=== PATIENT | female | born 1945 | race Caucasian/White ===

== ENCOUNTER 2019-05-22 14:50 | Inpatient (IN) | payer MEDICAID ==
[~2019-05-22] VITALS: Ht 147.3 cm; Wt 57.4 kg
--- NOTE | 2019-05-22 16:41 | NUR ---
PT WALKED TO ROOM OB IN STABLE CONDITION WITH CO BILATERAL LOWER EXTREMITIES SWELLING. PT MISSED HD TODAY SINCE NO INSURANCE.
[2019-05-22 17:15] LABS: BASOPHIL % 0.4 % (0-2); PLATELET COUNT 238 x10^3mcL (130-400)
[2019-05-22 17:28] LABS: ALKALINE PHOSPHATASE 160 U/L (46-116); ALT/SGPT 68 U/L (14-59); AST/SGOT 47 U/L (15-37); BILIRUBIN TOTAL 0.3 mg/dL (0.20-1.00); CALCIUM 8.7 mg/dL (8.5-10.1); CARBON DIOXIDE 18.8 mmol/L (21-32); CHLORIDE SERUM 103 mmol/L (98-107); GLUCOSE SERUM 111 mg/dL (74-106); POTASSIUM SERUM 4.7 mmol/L (3.5-5.1); SODIUM SERUM 136 mmol/L (136-145); TOTAL PROTEIN, SERUM 7.1 g/dL (6.4-8.2)
[2019-05-22 17:42] LABS: ALBUMIN 3.3 g/dL (3.4-5.0)
[2019-05-22 17:45] LABS: CREATININE SERUM 7.6 mg/dL (0.6-1.0)
--- NOTE | 2019-05-22 17:50 | NUR ---
LAB CALLED CRITICAL REPORT CREATININE 7.6. WAS NOTIFIED AT SAME TIME TO RECEIVED REPORT.
--- NOTE | 2019-05-22 17:54 | NUR ---
MEDICATED PT WITH TYLENOL PER MD ORDER.
[2019-05-22] MEDS ORDERED: GOOD SENSE ASPI81 M3 PO (19:31)
[2019-05-22] MEDS ORDERED: ATORVASTATIN CA80 M1 PO (19:31)
[2019-05-22] MEDS ORDERED: ANTACID PO (19:31)
[2019-05-22] MEDS ORDERED: CLOPIDOGREL75 M1 PO (19:31)
[2019-05-22] MEDS ORDERED: NIT0.4 SL (19:32)
[2019-05-22] MEDS ORDERED: TOPROL XL25 MG PO (19:32)
[2019-05-22] MEDS ORDERED: ISOSORBIDE DINI10 MG PO (19:32)
[2019-05-22] MEDS ORDERED: NEPHRO-VITE VITA1 EA PO (19:32)
[2019-05-22] MEDS ORDERED: LISINOPRIL10 MG PO (19:32)
[2019-05-22] MEDS ORDERED: DSS100 MG PO (19:33)
--- NOTE | 2019-05-22 19:55 | NUR ---
REPORT TO ROBERTO WILKINS TO ASSUME CARE OF PT
--- NOTE | 2019-05-22 20:08 | NUR ---
PT TAKEN TO MED SURG FLOOR BY EMT. NO S/S OF DISTRESS. RESP E/U. IV SITE PATENT, NO S/S OF INFILTRATION.
--- NOTE | 2019-05-22 20:10 | NUR ---
PT WAS RECEIVED BY PRIMARY NURSE CLAUDETTE FROM ED VIA [employer], CAME IN DUE TO BLE SWELLING SINCE WEDNESDAY. AAOX4. DENIES HEADACHE/DIZZINESS. NO SOB NOTED, LUNG SOUNDS CTA. DENIES CHEST PAIN/PRESSURE. DENIES ABDOMINAL PAIN/NASUEA/VOMITING. LAST BM ON 05/19/19. BOWEL SOUNDS HYPOACTIVE. W/ LUE ECCHYMOSIS, JUSTIN. ON HD EVERY MWF, W/ RIGHT CHEST DILAYSIS CATHETER, CDI. PT IS OLIGURIC. IV SITE PATENT AND INTACT. SIDE RAILS UPX2. CALL LIGHT ON REACH. ENDORSED TO PRIMARY NURSE CLAUDETTE FOR CONTINUITY OF CARE
[2019-05-22 20:49] VITALS: BP 146/68
[2019-05-22 20:56] VITALS: Ht 147.3 cm; Wt 57.4 kg
[2019-05-22 21:42] LABS: CHOLESTEROL/HDL RATIO 2.4
[2019-05-22 21:46] LABS: T3 TOTAL 0.49 ng/mL
[2019-05-22 22:01] LABS: FREE T4 0.96 ng/dL (0.76-1.46); FREE THYROXINE INDEX 2.3 ug/dL (1.4-4.5); T4(THYROXINE) 6.5 ug/dL (4.7-13.3)
--- NOTE | 2019-05-23 00:41 | NUR ---
PT SLEEPING COMFORTABLY IN BED. NO ACUTE DISTRESS NOTED. EVEN AND UNLABORED RESPIRATIONS ON RA. BED IN LOWEST POSITION. SIDE RAILS UPX2. CALL LIGHT WITHIN REACH. WILL CONTINUE TO MONITOR.
[2019-05-23 04:59] VITALS: BP 154/70
--- NOTE | 2019-05-23 06:26 | NUR ---
PT SLEPT COMFORTABLY IN INTERVALS THROUGHOUT THE SHIFT. NO ACUTE DISTRESS NOTED. EVEN AND UNLABORED RESPIRATIONS ON RA. ALL NEEDS TENDED TO AND MET. ALL SCHEDULED MEDICATIONS GIVEN. IVL PATENT AND INTACT. RIGHT CHEST WALL DIALYSIS CATHETER INTACT, DRESSING CDI. BLOOD SUGAR CHECKED, 83, NO COVERAGE NEEDED. FLUID RESTRICTION OF 1.2L/DAY IN PLACE. BED IN LOWEST POSITION. SIDE RAILS UPX2. CALL LIGHT WITHIN REACH. WILL ENDORSE TO ONCOMING SHIFT.
--- NOTE | 2019-05-23 07:10 | NUR ---
RECEIVED PT FROM NIGHT NURSE. PT IS LAYING DOWN IN BED WITH HOB UP RESTING WITH EYES CLOSED. RESPIRATIONS EVEN AND UNLABORED ON ROOM AIR. PT LOOKS TO BE IN NO ACUTE DISTRESS AT THIS TIME. IV SITE PATENT WITH NO SIGNS OF ERYTHEMA OR SWELLING. BED IN LOWEST POSITION, CALL LIGHT WITHIN REACH. WILL CONTINUE TO MONITOR.
[2019-05-23 07:30] LABS: PLATELET COUNT 218 x10^3mcL (130-400)
[2019-05-23 07:41] LABS: CALCIUM 8.5 mg/dL (8.5-10.1); CARBON DIOXIDE 16.6 mmol/L (21-32); CHLORIDE SERUM 102 mmol/L (98-107); GLUCOSE SERUM 87 mg/dL (74-106); POTASSIUM SERUM 4.7 mmol/L (3.5-5.1); SODIUM SERUM 135 mmol/L (136-145)
[2019-05-23 08:09] LABS: RED CELL DISTRIBUTION WIDTH 16.5 % (11.5-14.5)
[2019-05-23 08:37] VITALS: BP 147/69
[2019-05-23 10:23] LABS: microscopic required? YES; urine erythrocyte 1+ (NEGATIVE)
--- NOTE | 2019-05-23 11:25 | NUR ---
DIALYSIS NURSE AT BEDSIDE. LABS AND ORDERED PROVIDED. PT LOOKS TO BE IN NO ACUTE DISTRESS AT THIS TIME.
--- NOTE | 2019-05-23 12:20 | NUR ---
PER DIALYSIS NURSE, CATHETER NOT WORKING AT THIS TIME. NOTIFIED DR. SOLER WHO STATED WOULD LIKE TO TRY DIALYSIS AGAIN AFTER ADMINISTERING ACTIVASE. WILL PUT IN ORDER PRESCRIBED.
--- NOTE | 2019-05-23 14:15 | NUR ---
PT IS SITTING AT BEDSIDE AND LOOKS TO BE IN NO ACUTE DISTRESS AT THIS TIME. FAMILY MEMBER AT BEDSIDE. RESPRIATIONS EVEN AND UNLABROED ON ROOM AIR. IV SITE PATENT WITH NO SIGNS OF ERYTHEMA OR SWELLING. WILL CONTINUE TO MONITOR.
--- NOTE | 2019-05-23 14:22 | NUR ---
Discount pharmacy card and list to low cost medical clinics given to patient by Sonya.
[2019-05-23 14:58] LABS: BAND NEUTROPHIL 0 % (0-10); BASOPHIL 0 % (0-2); MONOCYTE 2 % (0-7); SEGMENTED NEUTROPHILS 63 % (37-75)
[2019-05-23 14:59] LABS: PLATELET MORPHOLOGY PLATELETS DECREASED; ovalocyte/elliptocyte 1+; rbc morphology (normal/abnorm) ABNORMAL (NORMAL)
--- NOTE | 2019-05-23 15:15 | NUR ---
DIALYSIS NURSE AT BEDSIDE.
--- NOTE | 2019-05-23 16:28 | NUR ---
RECEIVED REPORT FROM DIALYSIS NURSE, HEMODIALYSIS WAS NOT COMPLETED, HAD 2 LITERS DIALYSIS OUTPUT. PER DIALYSIS NURSE, DR. DORETHA BENJAMIN AWARE
[2019-05-23 17:16] VITALS: BP 149/68
--- NOTE | 2019-05-23 17:30 | NUR ---
ECHOCARDIOGRAM COMPLETED. RN GIVEN PRELIMINARY REPORT.
--- NOTE | 2019-05-23 18:12 | NUR ---
PT IS LAYING DOWN IN BED WITH HOB UP. PT STATES FEELING TIRED AFTER DIALYSIS. PT LOOKS TO BE IN NO ACUTE DISTRESS AT THIS TIME AND DENIES ANY PAIN AT THIS TIME. IV SITE PATENT WITH NO SIGNS OF ERYTHEMA OR SWELLING. RESPIRATIONS EVEN AND UNLABORED ON ROOM AIR. BED IN LOWEST POSITION, CALL LIGHT WITHIN REACH. WILL ENDORSE TO ONCOMING SHIFT.
[2019-05-23 19:50] VITALS: BP 159/86
--- NOTE | 2019-05-23 20:00 | NUR ---
RECEIVED PT IN BED, RESTING IN BED, A/O X4/ DENIES HEADACHE/DIZZINESS. RESP. EVEN AND UNLABORED, BUT COMPLAINING OF SOB, SAT. SHOWS 91% ON ROOM AIR, PLACED ON 02 AT 2L/MIN VIA NC. LUNG SOUNDS CLEAR BILAT. HOB ELEVATED. AFEBRILE AND VITAL SIGNS STABLE. DENIES CP OR PRESSURE.HEMODIALYSIS CATH TO RT CHEST , SITE DRESSING DRY AND INTACT. ASSISTED WITH HS CARE. CALL LIGHT WITHIN REACH. WILL CONTINUE TO MONITOR.
--- NOTE | 2019-05-23 21:58 | NUR ---
DUE MEDS GIVEN ORDERED, BREANNE. PANCHO. 02 SAT. SHOWS 97% ON 02 AT 2L/MIN VIA NC. NO COMPLAINTS NOTED . WILL CONTINUE TO MONITOR.
--- NOTE | 2019-05-24 02:27 | NUR ---
NO COMPLAINTS NOTED AT THIS TIME. EYES CLOSED, APPEARS ASLEEP, EASILY AROUSABLE. RESP. EVEN AND UNLABORED. NO ACUTE DISTRESS NOTED. WILL CONTINUE TO MONITOR.
[2019-05-24 05:32] VITALS: BP 120/63
--- NOTE | 2019-05-24 06:14 | NUR ---
SLPET WELL. NO COMPLAINTS NOTED. AFEBRILE AND VITAL SIGNS STABLE. RESP. EVEN AND UNLABORED. NO ACUTE DISTRESS NOTED. DENIES PAIN OR ANY DISCOMFORT AT THIS TIME. KEPT COMFORTABLE. CALL LIGHT WITHIN REACH. WILL CONTINUE TO MONITOR.
[2019-05-24 06:38] LABS: BASOPHIL % 0.8 % (0-2); PLATELET COUNT 202 x10^3mcL (130-400)
[2019-05-24 06:54] LABS: RED CELL DISTRIBUTION WIDTH 16.1 % (11.5-14.5)
[2019-05-24 07:27] LABS: CARBON DIOXIDE 22.1 mmol/L (21-32); CHLORIDE SERUM 103 mmol/L (98-107); GLUCOSE SERUM 81 mg/dL (74-106); PHOSPHOROUS 2.5 mg/dL (2.5-4.9); POTASSIUM SERUM 4.4 mmol/L (3.5-5.1); SODIUM SERUM 137 mmol/L (136-145)
[2019-05-24 07:35] LABS: CREATININE SERUM 7.2 mg/dL (0.6-1.0)
--- NOTE | 2019-05-24 08:29 | NUR ---
At 0710, Recieved patient from night nurse. Patient is sleeping. Respirations are regular. At 0740, patient is awake, alert, and appears orientated. Patient sitting on side of bed, has eaten breakfast. Hemodialysis nurse at bedside, preparing for dialysis.
[2019-05-24 08:54] VITALS: BP 134/62
--- NOTE | 2019-05-24 11:42 | NUR ---
AT 1100 - DIALYSIS COMPLETED. TOTAL OF 3000 ML REMOVED.
--- NOTE | 2019-05-24 12:15 | NUR ---
PATIENT HAS BEEN TAKEN TO RADIOLOGY FOR CHEST X-RAY - AP AND LATERAL
--- NOTE | 2019-05-24 12:32 | NUR ---
PATIENT HAS RETURNED FROM RADIOLOGY. PATIENT OBSERVED SITTING ON SIDE OF BED AND EATING LUNCH.
--- NOTE | 2019-05-24 16:08 | NUR ---
PATIENT SITS IN CHAIR OR ON SIDE OF BED. FAMILY MEMBER AT BEDSIDE.
[2019-05-24 16:40] VITALS: BP 144/79
--- NOTE | 2019-05-24 17:54 | NUR ---
Vital signs are stable. Patient is able to ambulate. Patient ambultates within room only. Patient has not voided. Patient is eating well. Last blood glucose check - 122. Will endorse care to night nurse.
--- NOTE | 2019-05-24 19:10 | NUR ---
REC'D PT FROM DAY NURSE. DAUGHTER AT BEDSIDE. PT SITTING AT THE SIDE OF THE BED. AAOX4, SPEECH CLEAR, FOLLOWS COMMANDS. MED SURG, NO TELE. DENIES CP, DIZZINESS, OR PALPITATIONS. DENIES RESP DISTRESS OR SOB. BREATHING EVEN/UNLABORED ON RA. L UPPER CHEST JORGE SPLIT CATH, DRESSING CDI. ABD SOFT/FLAT. DENIES ABD PAIN, TENDERNESS, OR N/V. OLIGURIC. LAST HD TODAY, 3L OUT VIA JORGE SPLIT. AMBULATORY. SKIN INTACT. IV TO LAC FLUSHED AND PATENT. SITE WNL. CALL LIGHT WITHIN REACH. BED AT LOWEST POSITION. WILL CONTINUE TO MONITOR.
--- NOTE | 2019-05-24 20:15 | NUR ---
NO BMX4 DAYS. DR. KWONG MADE AWARE VIA [facility]. REQUESTED LACTULOSE.
[2019-05-24 20:59] VITALS: BP 126/59
--- NOTE | 2019-05-25 00:25 | NUR ---
PT RESTING IN BED WITH EYES CLOSED. LAYING ON R SIDE. NO SIGNS OF DISTRESS NOTED. BREATHING EVEN/UNLABORED ON RA. CALL LIGHT WITHIN REACH, BED AT LOWEST POSITION. WILL CONTINUE TO MONITOR.
[2019-05-25 05:06] VITALS: BP 140/54
--- NOTE | 2019-05-25 05:44 | NUR ---
PT RESTING IN BED WITH EYES CLOSED. LAYING ON L SIDE. NO SIGNS OF DISTRESS NOTED. BREATHING EVEN/UNLABORED ON RA. NO SIGNIFICANT CHANGES DURING SHIFT. CALL LIGHT WITHIN REACH, BED AT LOWEST POSITION. WILL ENDORSE TO DAY NURSE.
[2019-05-25 07:24] LABS: BASOPHIL % 1.3 % (0-2); PLATELET COUNT 196 x10^3mcL (130-400)
[2019-05-25 07:28] LABS: CALCIUM 7.7 mg/dL (8.5-10.1); CARBON DIOXIDE 24.7 mmol/L (21-32); CHLORIDE SERUM 99 mmol/L (98-107); GLUCOSE SERUM 69 mg/dL (74-106); POTASSIUM SERUM 3.8 mmol/L (3.5-5.1); SODIUM SERUM 136 mmol/L (136-145)
[2019-05-25 07:45] LABS: CREATININE SERUM 6.1 mg/dL (0.6-1.0)
--- NOTE | 2019-05-25 07:54 | NUR ---
Recieved patient from night nurse. Patient observed sleeping with regular respirations. Upon patient awaking, morning assessment performed at 0730. Patient was sitting on side of bed eating breakfast. Right subclavian dialysis catheter dressing is clean, dry, and intact. Respirations are approrpriate, patient is not complaining of any pain at this time.
[2019-05-25 08:23] VITALS: BP 160/65
--- NOTE | 2019-05-25 14:59 | NUR ---
QUIET DAY. FAMILY VISITING. ODER FOR HEMODIALYSIS TOMORROW.
[2019-05-25 17:05] VITALS: BP 143/75
--- NOTE | 2019-05-25 18:10 | NUR ---
Patient is sitting in chair. No complaints of pain. Vital signs are stable. Reports one small bowel movement today. Will endorse to night nurse.
--- NOTE | 2019-05-25 19:10 | NUR ---
REC'D PT FROM DAY NURSE. DAUGHTER AT BEDSIDE. PT RESTING IN BED. AAOX4, SPEECH CLEAR, FOLLOWS COMMANDS. MED SURG, NO TELE. DENIES CP, DIZZINESS, OR PALPITATIONS. DENIES RESP DISTRESS OR SOB. BREATHING EVEN/UNLABORED ON RA. NO EDEMA NOTED. ABD SOFT/FLAT. DENIES ABD PAIN, TENDERNESS, OR N/V. OLIGURIC. LAST HD 05/24 3L OUT VIA R UPPER CHEST JROGE SPLIT CATH. PLAN FOR HD TOMORROW. AMBULATORY. SKIN INTACT. IV TO LAC FLUSHED AND PATENT, SITE WNL. CALL LIGHT WITHIN REACH, BED AT LOWEST POSITION. WILL CONTINUE TO MONITOR.
--- NOTE | 2019-05-25 19:35 | NUR ---
REC'D CALL BACK FROM DR. GONZALEZ. INQUIRED IF PT IS ABLE TO EAT DINNER AND THEN BE NPO AFTER MN. STATED TO CALL DR. GREEN AND ASK ABOUT DIET.
--- NOTE | 2019-05-25 19:40 | NUR ---
DR. NORMA BARRY.
[2019-05-25 20:33] VITALS: BP 134/62
--- NOTE | 2019-05-26 00:54 | NUR ---
PT RESTING IN BED WITH EYES CLOSED. LAYING ON L SIDE. NO SIGNS OF DISTRESS NOTED. BREATHING EVEN/UNLABORED ON RA. CALL LIGHT WITHIN REACH, BED AT LOWEST POSITION. WILL CONTINUE TO MONITOR.
[2019-05-26 05:07] VITALS: BP 149/68
--- NOTE | 2019-05-26 06:17 | NUR ---
PT RESTING IN BED WITH EYES CLOSED. LAYING ON L SIDE. AWAKENS WITH VERBAL STIMULI. NO SIGNS OF DISTRESS NOTED. BREATHING EVEN/UNLABORED ON RA. NO SIGNIFICANT CHANGES DURING SHIFT. PT TO HAVE HD TODAY. CALL LIGHT WITHIN REACH, BED AT LOWEST POSITION. WILL ENDORSE TO DAY NURSE.
[2019-05-26 06:51] LABS: CALCIUM 7.8 mg/dL (8.5-10.1); CARBON DIOXIDE 23.9 mmol/L (21-32); CHLORIDE SERUM 96 mmol/L (98-107); CREATININE SERUM 7.1 mg/dL (0.6-1.0); GLUCOSE SERUM 76 mg/dL (74-106); POTASSIUM SERUM 4.3 mmol/L (3.5-5.1); SODIUM SERUM 132 mmol/L (136-145)
--- NOTE | 2019-05-26 07:49 | NUR ---
RECEIVED IN NO RESP. DISTRESS, SLEEPING BUT AROUSABLE. NO S/S OF PAIN OR DISCOMFORT. CALL LIGHT WITHIN REACH. WILL CONTINUE WITH PLAN OF CARE.
[2019-05-26 08:03] LABS: BASOPHIL % 1.2 % (0-2); PLATELET COUNT 184 x10^3mcL (130-400)
[2019-05-26 08:04] LABS: RED CELL DISTRIBUTION WIDTH 15.6 % (11.5-14.5)
[2019-05-26 08:22] VITALS: BP 147/65
--- NOTE | 2019-05-26 12:06 | NUR ---
HEMODIALYSIS IN PROGRESS, PT TOLERATING WELL. NO ACUTE DISTRESS NOTED. NO C/O PAIN.
[2019-05-26 13:39] VITALS: BP 147/65
--- NOTE | 2019-05-26 15:30 | NUR ---
HEMODIALYSIS COMPLETED, PT TOLERATED WEL. 2000ML OUT. NO DISTRESS. NO C/O PAIN OR DISCOMFORT. FAMILY AT BEDSIDE.
--- NOTE | 2019-05-26 16:09 | NUR ---
PT DC'D HOME IN NO DISTRESS, AWAKE AND ALERT. NO CHANGES IN VS. DC INSTRUCTIONS REVIEWED WITH PT AND FAMILY. PT INSTRUCTED TO F/U WITH HD CLINIC ON WEDNESDAY. THERY BOTH VERBALIZED UNDERSTANDING. NO C/O PAIN OR DISCOMFORT AT THE TIME OF DC. PERSONAL BELONGINGS TAKEN HOME.
== END 2019-05-26 16:00 | disposition home or self-care (01) | DRG 425 ==
LOC: ED 14:50 → MU 19:16
PROVIDERS: Emergency Medicine; Internal Medicine Nephrology; ADMIT Internal Medicine
PROC: 5A1D70Z Performance of Urinary Filtration, Intermittent, Less than 6 Hours Per Day (ICD-10-PCS; principal; 2019-05-23)
PROC: 5A1D70Z Performance of Urinary Filtration, Intermittent, Less than 6 Hours Per Day (ICD-10-PCS; 2019-05-24)
PROC: 5A1D70Z Performance of Urinary Filtration, Intermittent, Less than 6 Hours Per Day (ICD-10-PCS; 2019-05-26)
DX: E87.79 Other fluid overload (principal); I13.2 Hypertensive heart and chronic kidney disease with heart failure and with stage 5 chronic kidney disease, or end stage renal disease; R06.09 Other forms of dyspnea; E11.22 Type 2 diabetes mellitus with diabetic chronic kidney disease; N18.6 End stage renal disease; I50.43 Acute on chronic combined systolic (congestive) and diastolic (congestive) heart failure; D63.1 Anemia in chronic kidney disease; I25.10 Atherosclerotic heart disease of native coronary artery without angina pectoris; R74.0 Nonspecific elevation of levels of transaminase and lactic acid dehydrogenase [LDH]; Z68.24 Body mass index [BMI] 24.0-24.9, adult; Z79.82 Long term (current) use of aspirin; Z79.4 Long term (current) use of insulin; Z99.2 Dependence on renal dialysis; Z91.15 Patient's noncompliance with renal dialysis
CPT/HCPCS: 82962; 83880; 84439; G0378; J1644; J1940; J2997; J7030

== ENCOUNTER 2019-06-06 17:44 | Emergency (ER) | payer MEDICAID ==
[~2019-06-06] VITALS: Ht 149.9 cm; Wt 55.8 kg
[~2019-06-06 17:44] MED LIST: ANTACID PO; ATORVASTATIN CA80 M1 PO; CLOPIDOGREL75 M1 PO; DSS100 MG PO; GOOD SENSE ASPI81 M3 PO; ISOSORBIDE DINI10 MG PO; LISINOPRIL10 MG PO; NEPHRO-VITE VITA1 EA PO; NIT0.4 SL; TOPROL XL25 MG PO
[2019-06-06 17:54] VITALS: Ht 149.9 cm; Wt 55.8 kg
[2019-06-06 20:38] LABS: BASOPHIL % 0.3 % (0-2); PLATELET COUNT 192 x10^3mcL (130-400)
[2019-06-06 20:42] LABS: RED CELL DISTRIBUTION WIDTH 16.2 % (11.5-14.5)
[2019-06-06 20:54] LABS: ALKALINE PHOSPHATASE 112 U/L (46-116); ALT/SGPT 30 U/L (14-59); AST/SGOT 28 U/L (15-37); BILIRUBIN TOTAL 0.47 mg/dL (0.20-1.00); CALCIUM 8.5 mg/dL (8.5-10.1); CARBON DIOXIDE 26.4 mmol/L (21-32); CHLORIDE SERUM 100 mmol/L (98-107); GLUCOSE SERUM 140 mg/dL (74-106); LIPASE 98 IU/L (73-393); POTASSIUM SERUM 4.9 mmol/L (3.5-5.1); SODIUM SERUM 138 mmol/L (136-145); TOTAL PROTEIN, SERUM 7.2 g/dL (6.4-8.2)
[2019-06-06 20:55] LABS: ALBUMIN 3.3 g/dL (3.4-5.0)
[2019-06-06 20:58] LABS: CREATININE SERUM 5.8 mg/dL (0.6-1.0)
[2019-06-06 21:24] VITALS: BP 129/64
== END 2019-06-06 21:24 | disposition home or self-care (01) ==
LOC: ED 17:44
PROVIDERS: Emergency Medicine
DX: J18.9 Pneumonia, unspecified organism (principal); M79.604 Pain in right leg; M79.605 Pain in left leg; E11.22 Type 2 diabetes mellitus with diabetic chronic kidney disease; I12.0 Hypertensive chronic kidney disease with stage 5 chronic kidney disease or end stage renal disease; N18.6 End stage renal disease; D64.9 Anemia, unspecified; Z99.2 Dependence on renal dialysis
CPT/HCPCS: 36415

== ENCOUNTER 2019-06-08 11:27 | Emergency (ER) | payer MEDICAID ==
[~2019-06-08] VITALS: Ht 142.2 cm; Wt 55.6 kg
[2019-06-08 11:36] VITALS: BP 137/63; Ht 142.2 cm; Wt 55.6 kg
[2019-06-08 13:07] LABS: BASOPHIL % 0.6 % (0-2); PLATELET COUNT 178 x10^3mcL (130-400); RED CELL DISTRIBUTION WIDTH 16.5 % (11.5-14.5)
[2019-06-08 13:27] LABS: ALKALINE PHOSPHATASE 117 U/L (46-116); ALT/SGPT 29 U/L (14-59); AST/SGOT 22 U/L (15-37); BILIRUBIN TOTAL 0.5 mg/dL (0.20-1.00); CALCIUM 8.5 mg/dL (8.5-10.1); CARBON DIOXIDE 35.8 mmol/L (21-32); CHLORIDE SERUM 103 mmol/L (98-107); GLUCOSE SERUM 159 mg/dL (74-106); SODIUM SERUM 143 mmol/L (136-145); TOTAL PROTEIN, SERUM 6.7 g/dL (6.4-8.2)
[2019-06-08 13:32] LABS: ALBUMIN 2.9 g/dL (3.4-5.0); CREATININE SERUM 4.8 mg/dL (0.6-1.0)
== END 2019-06-08 14:16 | disposition home or self-care (01) ==
LOC: ED 11:27
PROVIDERS: Emergency Medicine
DX: B34.9 Viral infection, unspecified (principal); E11.22 Type 2 diabetes mellitus with diabetic chronic kidney disease; I12.0 Hypertensive chronic kidney disease with stage 5 chronic kidney disease or end stage renal disease; N18.6 End stage renal disease; Z99.2 Dependence on renal dialysis; Z98.890 Other specified postprocedural states
CPT/HCPCS: 36415

== ENCOUNTER 2019-06-09 19:33 | Inpatient (IN) | payer MEDICAID ==
[~2019-06-09] VITALS: Ht 149.9 cm; Wt 68.9 kg
[2019-06-09 21:08] LABS: BASOPHIL % 0.6 % (0-2); PLATELET COUNT 185 x10^3mcL (130-400); RED CELL DISTRIBUTION WIDTH 15.8 % (11.5-14.5)
[2019-06-09 21:22] LABS: CALCIUM 8.6 mg/dL (8.5-10.1); CARBON DIOXIDE 31.6 mmol/L (21-32); CHLORIDE SERUM 95 mmol/L (98-107); CREATININE SERUM 3.2 mg/dL (0.6-1.0); GLUCOSE SERUM 146 mg/dL (74-106); POTASSIUM SERUM 5.1 mmol/L (3.5-5.1); SODIUM SERUM 134 mmol/L (136-145)
[2019-06-09 21:27] LABS: ALBUMIN 3.1 g/dL (3.4-5.0); ALKALINE PHOSPHATASE 106 U/L (46-116); ALT/SGPT 28 U/L (14-59); AST/SGOT 32 U/L (15-37); BILIRUBIN TOTAL 0.41 mg/dL (0.20-1.00); TOTAL PROTEIN, SERUM 7.2 g/dL (6.4-8.2)
[2019-06-09 23:11] LABS: CHOLESTEROL/HDL RATIO 2.4; MAGNESIUM 1.9 mg/dL (1.8-2.4); PHOSPHOROUS 1.7 mg/dL (2.5-4.9)
[2019-06-09 23:12] VITALS: BP 142/79
[2019-06-09 23:21] LABS: FREE T4 1.28 ng/dL (0.76-1.46); FREE THYROXINE INDEX 3.1 ug/dL (1.4-4.5); T4(THYROXINE) 8.3 ug/dL (4.7-13.3)
[2019-06-09 23:22] VITALS: Ht 149.9 cm; Wt 68.9 kg
[2019-06-09 23:22] LABS: T3 TOTAL 0.88 ng/mL
[2019-06-10 05:55] VITALS: BP 117/59
[2019-06-10 06:53] LABS: BASOPHIL % 0.6 % (0-2); PLATELET COUNT 174 x10^3mcL (130-400)
[2019-06-10 07:00] LABS: RED CELL DISTRIBUTION WIDTH 15.8 % (11.5-14.5)
[2019-06-10 07:36] LABS: CALCIUM 8.4 mg/dL (8.5-10.1); CARBON DIOXIDE 30.6 mmol/L (21-32); CHLORIDE SERUM 99 mmol/L (98-107); CREATININE SERUM 3.9 mg/dL (0.6-1.0); GLUCOSE SERUM 105 mg/dL (74-106); MAGNESIUM 1.8 mg/dL (1.8-2.4); PHOSPHOROUS 2.1 mg/dL (2.5-4.9); POTASSIUM SERUM 5.2 mmol/L (3.5-5.1); SODIUM SERUM 138 mmol/L (136-145)
[2019-06-10 08:25] VITALS: BP 114/54
[2019-06-10 16:34] VITALS: BP 123/59
[2019-06-10 20:48] VITALS: BP 139/67
[2019-06-11 05:15] VITALS: BP 142/74
[2019-06-11 06:27] LABS: BASOPHIL % 0.9 % (0-2); PLATELET COUNT 163 x10^3mcL (130-400)
[2019-06-11 06:30] LABS: CALCIUM 8.7 mg/dL (8.5-10.1); CARBON DIOXIDE 28.1 mmol/L (21-32); CHLORIDE SERUM 100 mmol/L (98-107); GLUCOSE SERUM 102 mg/dL (74-106); MAGNESIUM 1.9 mg/dL (1.8-2.4); PHOSPHOROUS 2.8 mg/dL (2.5-4.9); POTASSIUM SERUM 4.9 mmol/L (3.5-5.1); SODIUM SERUM 135 mmol/L (136-145)
[2019-06-11 06:41] LABS: RED CELL DISTRIBUTION WIDTH 15.9 % (11.5-14.5)
[2019-06-11 06:59] LABS: CREATININE SERUM 5.2 mg/dL (0.6-1.0)
[2019-06-11 08:37] VITALS: BP 147/71
[2019-06-11 17:05] VITALS: BP 127/56
[2019-06-11 20:30] VITALS: BP 127/49
[2019-06-12 05:44] VITALS: BP 129/55
[2019-06-12 07:02] LABS: CALCIUM 8.6 mg/dL (8.5-10.1); CARBON DIOXIDE 24.2 mmol/L (21-32); CHLORIDE SERUM 102 mmol/L (98-107); GLUCOSE SERUM 88 mg/dL (74-106); MAGNESIUM 2.1 mg/dL (1.8-2.4); PHOSPHOROUS 3.8 mg/dL (2.5-4.9); POTASSIUM SERUM 5.2 mmol/L (3.5-5.1); SODIUM SERUM 138 mmol/L (136-145)
[2019-06-12 07:06] LABS: CREATININE SERUM 6.6 mg/dL (0.6-1.0)
[2019-06-12 07:08] LABS: BASOPHIL % 0.8 % (0-2); PLATELET COUNT 179 x10^3mcL (130-400)
[2019-06-12 09:06] VITALS: BP 118/70
[2019-06-12 17:56] VITALS: BP 158/49
[2019-06-12 21:52] VITALS: BP 120/54
[2019-06-13 05:58] VITALS: BP 124/54
[2019-06-13 06:42] LABS: BASOPHIL % 0.4 % (0-2); PLATELET COUNT 208 x10^3mcL (130-400)
[2019-06-13 06:50] LABS: CARBON DIOXIDE 27.1 mmol/L (21-32); CHLORIDE SERUM 106 mmol/L (98-107); GLUCOSE SERUM 86 mg/dL (74-106); MAGNESIUM 1.8 mg/dL (1.8-2.4); PHOSPHOROUS 3.9 mg/dL (2.5-4.9); SODIUM SERUM 144 mmol/L (136-145)
[2019-06-13 06:53] LABS: CREATININE SERUM 4.7 mg/dL (0.6-1.0)
[2019-06-13 07:10] LABS: RED CELL DISTRIBUTION WIDTH 15.9 % (11.5-14.5)
[2019-06-13 09:36] VITALS: BP 121/58
[2019-06-13 18:02] VITALS: BP 137/59
[2019-06-13 20:45] VITALS: BP 121/58
[2019-06-13 22:10] VITALS: BP 121/58
[2019-06-14 05:03] VITALS: BP 135/56
[2019-06-14 06:10] LABS: BASOPHIL % 0.6 % (0-2); PLATELET COUNT 239 x10^3mcL (130-400)
[2019-06-14 06:14] LABS: RED CELL DISTRIBUTION WIDTH 16.5 % (11.5-14.5)
[2019-06-14 06:42] LABS: CALCIUM 7.7 mg/dL (8.5-10.1); CARBON DIOXIDE 24.7 mmol/L (21-32); CHLORIDE SERUM 104 mmol/L (98-107); GLUCOSE SERUM 96 mg/dL (74-106); POTASSIUM SERUM 5.4 mmol/L (3.5-5.1); SODIUM SERUM 141 mmol/L (136-145)
[2019-06-14 06:47] LABS: CREATININE SERUM 5.9 mg/dL (0.6-1.0)
[2019-06-14 08:14] VITALS: BP 114/59
[2019-06-14 12:04] VITALS: BP 131/81
[2019-06-14 14:24] VITALS: BP 141/58
[2019-06-14 15:40] LABS: CALCIUM 7.6 mg/dL (8.5-10.1); CARBON DIOXIDE 24.2 mmol/L (21-32); CHLORIDE SERUM 102 mmol/L (98-107); GLUCOSE SERUM 110 mg/dL (74-106); POTASSIUM SERUM 4.7 mmol/L (3.5-5.1); SODIUM SERUM 140 mmol/L (136-145)
[2019-06-14 15:44] LABS: CREATININE SERUM 6.2 mg/dL (0.6-1.0)
[2019-06-14 16:18] VITALS: BP 128/58
[2019-06-14 19:46] VITALS: BP 122/57
[2019-06-15 05:59] VITALS: BP 99/46
[2019-06-15 06:39] LABS: BASOPHIL % 0.7 % (0-2); PLATELET COUNT 245 x10^3mcL (130-400)
[2019-06-15 06:40] LABS: CALCIUM 7.3 mg/dL (8.5-10.1); CARBON DIOXIDE 25.2 mmol/L (21-32); CHLORIDE SERUM 105 mmol/L (98-107); GLUCOSE SERUM 71 mg/dL (74-106); MAGNESIUM 1.8 mg/dL (1.8-2.4); SODIUM SERUM 142 mmol/L (136-145)
[2019-06-15 06:50] LABS: RED CELL DISTRIBUTION WIDTH 17.1 % (11.5-14.5)
[2019-06-15 07:39] LABS: CREATININE SERUM 6.8 mg/dL (0.6-1.0); POTASSIUM SERUM 5.8 mmol/L (3.5-5.1)
[2019-06-15 09:25] VITALS: BP 100/42
[2019-06-15 16:35] VITALS: BP 111/49
[2019-06-15 20:41] VITALS: BP 123/91
[2019-06-16 04:21] VITALS: BP 126/57
[2019-06-16 06:12] LABS: BASOPHIL % 0.8 % (0-2); PLATELET COUNT 214 x10^3mcL (130-400)
[2019-06-16 06:23] LABS: CALCIUM 7.7 mg/dL (8.5-10.1); CARBON DIOXIDE 26.6 mmol/L (21-32); CHLORIDE SERUM 107 mmol/L (98-107); GLUCOSE SERUM 82 mg/dL (74-106); POTASSIUM SERUM 5.3 mmol/L (3.5-5.1); SODIUM SERUM 144 mmol/L (136-145)
[2019-06-16 07:01] LABS: CREATININE SERUM 4.2 mg/dL (0.6-1.0)
[2019-06-16 07:14] LABS: RED CELL DISTRIBUTION WIDTH 17.4 % (11.5-14.5)
[2019-06-16 08:31] VITALS: BP 152/71
[2019-06-16 16:43] VITALS: BP 145/60
[2019-06-16 21:12] VITALS: BP 140/54
[2019-06-17 05:06] VITALS: BP 136/59
[2019-06-17 07:06] LABS: PLATELET COUNT 184 x10^3mcL (130-400)
[2019-06-17 07:09] LABS: CALCIUM 7.9 mg/dL (8.5-10.1); CARBON DIOXIDE 25.4 mmol/L (21-32); CHLORIDE SERUM 104 mmol/L (98-107); CREATININE SERUM 3.6 mg/dL (0.6-1.0); GLUCOSE SERUM 98 mg/dL (74-106); MAGNESIUM 1.7 mg/dL (1.8-2.4); POTASSIUM SERUM 4.1 mmol/L (3.5-5.1); SODIUM SERUM 140 mmol/L (136-145)
[2019-06-17 07:16] LABS: RED CELL DISTRIBUTION WIDTH 16.9 % (11.5-14.5)
[2019-06-17 09:03] VITALS: BP 147/79
[2019-06-17 17:40] VITALS: BP 149/76
[2019-06-17 20:00] VITALS: BP 142/75
[2019-06-18 04:23] VITALS: BP 135/70
[2019-06-18 07:01] LABS: CALCIUM 7.9 mg/dL (8.5-10.1); CARBON DIOXIDE 23.2 mmol/L (21-32); CHLORIDE SERUM 103 mmol/L (98-107); GLUCOSE SERUM 104 mg/dL (74-106); POTASSIUM SERUM 4.1 mmol/L (3.5-5.1); SODIUM SERUM 139 mmol/L (136-145)
[2019-06-18 07:04] LABS: BASOPHIL % 0.7 % (0-2); PLATELET COUNT 186 x10^3mcL (130-400)
[2019-06-18 07:09] LABS: RED CELL DISTRIBUTION WIDTH 17.3 % (11.5-14.5)
[2019-06-18 08:01] LABS: CREATININE SERUM 4.7 mg/dL (0.6-1.0)
[2019-06-18 09:02] VITALS: BP 143/61
[2019-06-18 17:02] VITALS: BP 149/77
[2019-06-18 20:32] VITALS: BP 147/77
[2019-06-19 04:33] VITALS: BP 135/56
[2019-06-19 06:19] LABS: BASOPHIL % 0.9 % (0-2); PLATELET COUNT 174 x10^3mcL (130-400)
[2019-06-19 06:35] LABS: CALCIUM 7.7 mg/dL (8.5-10.1); CARBON DIOXIDE 23.8 mmol/L (21-32); CHLORIDE SERUM 106 mmol/L (98-107); GLUCOSE SERUM 77 mg/dL (74-106); POTASSIUM SERUM 4.4 mmol/L (3.5-5.1); SODIUM SERUM 142 mmol/L (136-145)
[2019-06-19 07:39] LABS: RED CELL DISTRIBUTION WIDTH 17.6 % (11.5-14.5)
[2019-06-19 08:23] VITALS: BP 136/69
[2019-06-19 16:45] VITALS: BP 156/81
[2019-06-19 19:26] VITALS: BP 150/68
[2019-06-20 03:58] VITALS: BP 142/67
[2019-06-20 06:26] LABS: CHLORIDE SERUM 107 mmol/L (98-107); GLUCOSE SERUM 75 mg/dL (74-106); SODIUM SERUM 143 mmol/L (136-145)
[2019-06-20 06:27] LABS: CREATININE SERUM 4.8 mg/dL (0.6-1.0)
[2019-06-20 08:08] LABS: BASOPHIL % 1.4 % (0-2); PLATELET COUNT 160 x10^3mcL (130-400)
[2019-06-20 08:10] LABS: RED CELL DISTRIBUTION WIDTH 18.4 % (11.5-14.5)
[2019-06-20 08:48] VITALS: BP 145/63
[2019-06-20 17:20] VITALS: BP 143/59
[2019-06-20 20:18] VITALS: BP 149/75
[2019-06-21 05:33] VITALS: BP 160/70
[2019-06-21 05:59] LABS: BASOPHIL % 0.4 % (0-2); PLATELET COUNT 165 x10^3mcL (130-400)
[2019-06-21 06:18] LABS: CARBON DIOXIDE 23.3 mmol/L (21-32); CHLORIDE SERUM 107 mmol/L (98-107); GLUCOSE SERUM 89 mg/dL (74-106); POTASSIUM SERUM 4.3 mmol/L (3.5-5.1); SODIUM SERUM 143 mmol/L (136-145)
[2019-06-21 06:44] LABS: CREATININE SERUM 5.8 mg/dL (0.6-1.0)
[2019-06-21 06:53] LABS: RED CELL DISTRIBUTION WIDTH 18.1 % (11.5-14.5)
[2019-06-21 09:30] VITALS: BP 152/72
[2019-06-21 17:15] VITALS: BP 122/67
[2019-06-21 20:20] VITALS: BP 140/68
[2019-06-22 04:26] VITALS: BP 126/69
[2019-06-22 06:28] LABS: CARBON DIOXIDE 23.1 mmol/L (21-32); CHLORIDE SERUM 106 mmol/L (98-107); GLUCOSE SERUM 80 mg/dL (74-106); POTASSIUM SERUM 4.2 mmol/L (3.5-5.1); SODIUM SERUM 141 mmol/L (136-145)
[2019-06-22 06:32] LABS: PLATELET COUNT 155 x10^3mcL (130-400)
[2019-06-22 07:05] LABS: RED CELL DISTRIBUTION WIDTH 18.5 % (11.5-14.5)
[2019-06-22 07:06] LABS: CREATININE SERUM 5.6 mg/dL (0.6-1.0)
[2019-06-22 08:19] LABS: rbc morphology (normal/abnorm) ABNORMAL (NORMAL)
[2019-06-22 08:36] VITALS: BP 146/78
[2019-06-22 08:45] LABS: BASOPHIL % 1.4 % (0-2); PLATELET COUNT 181 x10^3mcL (130-400)
[2019-06-22 08:54] LABS: RED CELL DISTRIBUTION WIDTH 18.3 % (11.5-14.5)
[2019-06-22 09:23] LABS: rbc morphology (normal/abnorm) ABNORMAL (NORMAL)
[2019-06-22 17:35] VITALS: BP 142/73
[2019-06-22 21:56] VITALS: BP 152/74
[2019-06-23 06:20] VITALS: BP 120/60
[2019-06-23 08:39] VITALS: BP 154/78
[2019-06-23 16:47] VITALS: BP 150/87
[2019-06-23 23:26] VITALS: BP 148/75
[2019-06-24 06:20] VITALS: BP 147/71
[2019-06-24 07:19] LABS: CALCIUM 8.3 mg/dL (8.5-10.1); CARBON DIOXIDE 23.9 mmol/L (21-32); CHLORIDE SERUM 107 mmol/L (98-107); GLUCOSE SERUM 88 mg/dL (74-106); POTASSIUM SERUM 4.2 mmol/L (3.5-5.1); SODIUM SERUM 143 mmol/L (136-145)
[2019-06-24 07:20] LABS: CREATININE SERUM 4.9 mg/dL (0.6-1.0)
[2019-06-24 07:41] LABS: BASOPHIL % 1.2 % (0-2); PLATELET COUNT 197 x10^3mcL (130-400)
[2019-06-24 07:43] LABS: RED CELL DISTRIBUTION WIDTH 19.4 % (11.5-14.5)
[2019-06-24 09:52] VITALS: BP 146/74
[2019-06-24 16:30] VITALS: BP 146/69
[2019-06-24 20:00] VITALS: BP 138/69
[2019-06-25 06:06] VITALS: BP 114/63
[2019-06-25 06:09] LABS: CARBON DIOXIDE 26.6 mmol/L (21-32); CHLORIDE SERUM 107 mmol/L (98-107); CREATININE SERUM 3.8 mg/dL (0.6-1.0); GLUCOSE SERUM 90 mg/dL (74-106); POTASSIUM SERUM 3.2 mmol/L (3.5-5.1); SODIUM SERUM 143 mmol/L (136-145)
[2019-06-25 06:16] LABS: PLATELET COUNT 170 x10^3mcL (130-400)
[2019-06-25 08:28] LABS: BASOPHIL % 2.6 % (0-2); RED CELL DISTRIBUTION WIDTH 19.3 % (11.5-14.5)
[2019-06-25 09:42] VITALS: BP 139/70
[2019-06-25 16:52] VITALS: BP 145/76
[2019-06-25 19:43] VITALS: BP 140/79
[2019-06-26 05:31] VITALS: BP 142/79
[2019-06-26 09:10] VITALS: BP 152/74
[2019-06-26] MEDS ORDERED: NAFCILLIN2 G/100 ML IV (09:53)
[2019-06-26 10:14] VITALS: BP 152/74
[2019-06-26 10:16] VITALS: BP 152/74
[2019-06-26 16:27] VITALS: BP 144/76
[2019-06-26 21:31] VITALS: BP 138/81
[2019-06-27 05:32] VITALS: BP 142/74
[2019-06-27 09:30] VITALS: BP 143/78
== END 2019-06-27 09:47 | disposition home or self-care (01) | DRG 721 ==
LOC: ED 19:33 → MU 22:23
PROVIDERS: Emergency Medicine; Family Medicine; Surgery; ADMIT Internal Medicine
PROC: 5A1D70Z Performance of Urinary Filtration, Intermittent, Less than 6 Hours Per Day (ICD-10-PCS; 2019-06-12)
PROC: 05PY33Z Removal of Infusion Device from Upper Vein, Percutaneous Approach (ICD-10-PCS; principal; 2019-06-12 15:30)
PROC: 05H633Z Insertion of Infusion Device into Left Subclavian Vein, Percutaneous Approach (ICD-10-PCS; 2019-06-14)
PROC: 5A1D70Z Performance of Urinary Filtration, Intermittent, Less than 6 Hours Per Day (ICD-10-PCS; 2019-06-15)
PROC: 5A1D70Z Performance of Urinary Filtration, Intermittent, Less than 6 Hours Per Day (ICD-10-PCS; 2019-06-16)
PROC: 5A1D70Z Performance of Urinary Filtration, Intermittent, Less than 6 Hours Per Day (ICD-10-PCS; 2019-06-19)
PROC: 5A1D70Z Performance of Urinary Filtration, Intermittent, Less than 6 Hours Per Day (ICD-10-PCS; 2019-06-21)
PROC: 5A1D70Z Performance of Urinary Filtration, Intermittent, Less than 6 Hours Per Day (ICD-10-PCS; 2019-06-22)
PROC: 5A1D70Z Performance of Urinary Filtration, Intermittent, Less than 6 Hours Per Day (ICD-10-PCS; 2019-06-24)
PROC: 5A1D70Z Performance of Urinary Filtration, Intermittent, Less than 6 Hours Per Day (ICD-10-PCS; 2019-06-26)
DX: T80.211A Bloodstream infection due to central venous catheter, initial encounter (principal); I33.0 Acute and subacute infective endocarditis; J18.9 Pneumonia, unspecified organism; J91.8 Pleural effusion in other conditions classified elsewhere; E11.22 Type 2 diabetes mellitus with diabetic chronic kidney disease; E87.5 Hyperkalemia; I13.11 Hypertensive heart and chronic kidney disease without heart failure, with stage 5 chronic kidney disease, or end stage renal disease; N18.6 End stage renal disease; E83.39 Other disorders of phosphorus metabolism; E87.1 Hypo-osmolality and hyponatremia; E44.1 Mild protein-calorie malnutrition; B95.7 Other staphylococcus as the cause of diseases classified elsewhere; D63.1 Anemia in chronic kidney disease; I25.10 Atherosclerotic heart disease of native coronary artery without angina pectoris; I25.2 Old myocardial infarction; Z99.2 Dependence on renal dialysis; Z95.5 Presence of coronary angioplasty implant and graft; Z68.23 Body mass index [BMI] 23.0-23.9, adult; Y71.1 Therapeutic (nonsurgical) and rehabilitative cardiovascular devices associated with adverse incidents; Y92.009 Unspecified place in unspecified non-institutional (private) residence as the place of occurrence of the external cause
CPT/HCPCS: 82962; 83880; 84439; 97116-GP; A4301; C1751; G0378; J0690; J0885-EC; J1644; J2001; J2270; J2405; J2543; J2785; J2997; J3370; J3490; J7030; J7040; J7050; J7120; P9047; Q0092

== ENCOUNTER 2019-07-06 21:08 | Emergency (ER) | payer MEDICAID ==
[~2019-07-06] VITALS: Ht 149.9 cm; Wt 59.0 kg
[~2019-07-06 21:08] MED LIST changes: +NAFCILLIN2 G/100 ML IV
[2019-07-06 21:11] VITALS: BP 145/60
== END 2019-07-06 22:20 | disposition home or self-care (01) ==
LOC: ED 21:08
DX: Z13.9 Encounter for screening, unspecified (principal); I10 Essential (primary) hypertension; E11.9 Type 2 diabetes mellitus without complications; Z98.890 Other specified postprocedural states

== ENCOUNTER 2019-07-10 15:19 | Inpatient (IN) | payer MEDICAID ==
[~2019-07-10] VITALS: Ht 152.4 cm; Wt 62.2 kg
[2019-07-10 15:24] VITALS: Ht 152.4 cm; Wt 62.2 kg
[2019-07-10 17:55] LABS: BASOPHIL % 0.6 % (0-2); PLATELET COUNT 211 x10^3mcL (130-400)
[2019-07-10 18:00] LABS: CALCIUM 8.6 mg/dL (8.5-10.1); CARBON DIOXIDE 29.4 mmol/L (21-32); CHLORIDE SERUM 99 mmol/L (98-107); CREATININE SERUM 2.8 mg/dL (0.6-1.0); GLUCOSE SERUM 131 mg/dL (74-106); POTASSIUM SERUM 3.6 mmol/L (3.5-5.1); SODIUM SERUM 137 mmol/L (136-145)
[2019-07-10 18:07] LABS: ALKALINE PHOSPHATASE 47 U/L (46-116); ALT/SGPT 22 U/L (14-59); AST/SGOT 29 U/L (15-37); BILIRUBIN TOTAL 1.95 mg/dL (0.20-1.00); TOTAL PROTEIN, SERUM 6.4 g/dL (6.4-8.2)
[2019-07-10 18:10] LABS: ALBUMIN 1.7 g/dL (3.4-5.0)
[2019-07-10 18:13] LABS: RED CELL DISTRIBUTION WIDTH 27.9 % (11.5-14.5)
[2019-07-10 18:30] LABS: ovalocyte/elliptocyte 1+; rbc morphology (normal/abnorm) ABNORMAL (NORMAL)
[2019-07-10 20:48] LABS: BASOPHIL % 0.8 % (0-2); PLATELET COUNT 263 x10^3mcL (130-400)
[2019-07-10 20:51] LABS: RED CELL DISTRIBUTION WIDTH 28.8 % (11.5-14.5)
[2019-07-10 20:54] LABS: ovalocyte/elliptocyte 1+; rbc morphology (normal/abnorm) ABNORMAL (NORMAL)
[2019-07-10 21:30] LABS: ALKALINE PHOSPHATASE 44 U/L (46-116); ALT/SGPT 24 U/L (14-59); AST/SGOT 33 U/L (15-37); CALCIUM 8.4 mg/dL (8.5-10.1); CARBON DIOXIDE 24.8 mmol/L (21-32); CHLORIDE SERUM 99 mmol/L (98-107); CREATININE SERUM 3.1 mg/dL (0.6-1.0); GLUCOSE SERUM 134 mg/dL (74-106); POTASSIUM SERUM 3.7 mmol/L (3.5-5.1); SODIUM SERUM 139 mmol/L (136-145)
[2019-07-10 21:31] LABS: ALBUMIN 1.7 g/dL (3.4-5.0); TOTAL PROTEIN, SERUM 6.1 g/dL (6.4-8.2)
[2019-07-10 22:59] VITALS: BP 92/45
[2019-07-10 23:12] VITALS: BP 92/45
[2019-07-11 00:20] LABS: BASOPHIL % 1.6 % (0-2); PLATELET COUNT 183 x10^3mcL (130-400)
[2019-07-11 00:31] LABS: RED CELL DISTRIBUTION WIDTH 28.9 % (11.5-14.5)
[2019-07-11 00:33] LABS: rbc morphology (normal/abnorm) ABNORMAL (NORMAL)
[2019-07-11 04:09] VITALS: BP 113/41
[2019-07-11 05:07] LABS: BASOPHIL % 1.1 % (0-2); PLATELET COUNT 184 x10^3mcL (130-400)
[2019-07-11 05:14] LABS: rbc morphology (normal/abnorm) ABNORMAL (NORMAL)
[2019-07-11 05:16] LABS: CALCIUM 7.7 mg/dL (8.5-10.1); CARBON DIOXIDE 25.6 mmol/L (21-32); CHLORIDE SERUM 102 mmol/L (98-107); CREATININE SERUM 3.3 mg/dL (0.6-1.0); GLUCOSE SERUM 103 mg/dL (74-106); MAGNESIUM 1.9 mg/dL (1.8-2.4); PHOSPHOROUS 3.4 mg/dL (2.5-4.9); POTASSIUM SERUM 3.5 mmol/L (3.5-5.1); SODIUM SERUM 140 mmol/L (136-145)
[2019-07-11 08:00] VITALS: BP 131/65
[2019-07-11 12:00] VITALS: BP 145/66
[2019-07-11 16:10] VITALS: BP 143/79
[2019-07-11 18:58] VITALS: BP 121/62
[2019-07-11 21:45] VITALS: BP 98/44
[2019-07-12] VITALS (7 sets, daily range): BP systolic 107–155; BP diastolic 50–94
[2019-07-12 04:49] LABS: BASOPHIL % 0.6 % (0-2); PLATELET COUNT 170 x10^3mcL (130-400)
[2019-07-12 04:50] LABS: RED CELL DISTRIBUTION WIDTH 19.7 % (11.5-14.5)
[2019-07-12 04:57] LABS: CALCIUM 8.2 mg/dL (8.5-10.1); CARBON DIOXIDE 22.5 mmol/L (21-32); CHLORIDE SERUM 107 mmol/L (98-107); GLUCOSE SERUM 108 mg/dL (74-106); POTASSIUM SERUM 3.4 mmol/L (3.5-5.1); SODIUM SERUM 145 mmol/L (136-145)
[2019-07-12 04:59] LABS: CREATININE SERUM 4.6 mg/dL (0.6-1.0)
[2019-07-13 05:42] VITALS: BP 168/63
[2019-07-13 06:41] LABS: CARBON DIOXIDE 26.7 mmol/L (21-32); CHLORIDE SERUM 102 mmol/L (98-107); CREATININE SERUM 3.3 mg/dL (0.6-1.0); GLUCOSE SERUM 114 mg/dL (74-106); POTASSIUM SERUM 3.2 mmol/L (3.5-5.1); SODIUM SERUM 141 mmol/L (136-145)
[2019-07-13 06:48] LABS: BASOPHIL % 0.9 % (0-2); PLATELET COUNT 182 x10^3mcL (130-400)
[2019-07-13 08:40] VITALS: BP 140/74
[2019-07-13 09:42] LABS: RED CELL DISTRIBUTION WIDTH 21.5 % (11.5-14.5)
[2019-07-13 11:53] LABS: rbc morphology (normal/abnorm) ABNORMAL (NORMAL)
[2019-07-13 13:40] VITALS: BP 147/73
[2019-07-13 16:26] VITALS: BP 143/76
[2019-07-13 21:30] VITALS: BP 154/83
[2019-07-14 06:14] VITALS: BP 142/83
[2019-07-14 09:02] VITALS: BP 106/73
[2019-07-14 10:57] LABS: BASOPHIL % 0.8 % (0-2); PLATELET COUNT 163 x10^3mcL (130-400)
[2019-07-14 11:01] LABS: rbc morphology (normal/abnorm) ABNORMAL (NORMAL)
[2019-07-14 11:14] LABS: CALCIUM 8.3 mg/dL (8.5-10.1); CHLORIDE SERUM 101 mmol/L (98-107); GLUCOSE SERUM 126 mg/dL (74-106); POTASSIUM SERUM 3.6 mmol/L (3.5-5.1); SODIUM SERUM 140 mmol/L (136-145)
[2019-07-14 11:17] LABS: CREATININE SERUM 4.8 mg/dL (0.6-1.0)
[2019-07-14] MEDS ORDERED: FER300 PO (13:06)
[2019-07-14] MEDS ORDERED: NAFCILLIN2 G/100 ML IV (13:08)
[2019-07-14 13:14] VITALS: BP 117/63
== END 2019-07-14 17:40 | disposition home health service (06) | DRG 241 ==
LOC: ED 15:19 → DU 18:47 → ED 18:47 → IC 18:48 → DU 18:48 → EDBEDREQ 22:02 → IC 22:12 → DU 22:12 → IC 22:12 → DU 07-11 17:52
PROVIDERS: Emergency Medicine; Internal Medicine; Internal Medicine Gastroenterology; ADMIT Internal Medicine
PROC: 30233N1 Transfusion of Nonautologous Red Blood Cells into Peripheral Vein, Percutaneous Approach (ICD-10-PCS; 2019-07-10)
PROC: 0DB68ZX Excision of Stomach, Via Natural or Artificial Opening Endoscopic, Diagnostic (ICD-10-PCS; principal; 2019-07-11 08:45)
PROC: 0D5F8ZZ Destruction of Right Large Intestine, Via Natural or Artificial Opening Endoscopic (ICD-10-PCS; 2019-07-12)
PROC: 5A1D70Z Performance of Urinary Filtration, Intermittent, Less than 6 Hours Per Day (ICD-10-PCS; 2019-07-12)
PROC: 0DB68ZX Excision of Stomach, Via Natural or Artificial Opening Endoscopic, Diagnostic (ICD-10-PCS; 2019-07-12 09:30)
PROC: 0D5H8ZZ Destruction of Cecum, Via Natural or Artificial Opening Endoscopic (ICD-10-PCS; 2019-07-12 09:30)
PROC: 05HY33Z Insertion of Infusion Device into Upper Vein, Percutaneous Approach (ICD-10-PCS; 2019-07-13)
PROC: 5A1D70Z Performance of Urinary Filtration, Intermittent, Less than 6 Hours Per Day (ICD-10-PCS; 2019-07-14)
DX: K25.4 Chronic or unspecified gastric ulcer with hemorrhage (principal); I21.A1 Myocardial infarction type 2; I33.0 Acute and subacute infective endocarditis; R57.1 Hypovolemic shock; I13.11 Hypertensive heart and chronic kidney disease without heart failure, with stage 5 chronic kidney disease, or end stage renal disease; I82.621 Acute embolism and thrombosis of deep veins of right upper extremity; E11.22 Type 2 diabetes mellitus with diabetic chronic kidney disease; N18.6 End stage renal disease; K55.21 Angiodysplasia of colon with hemorrhage; D62 Acute posthemorrhagic anemia; B95.7 Other staphylococcus as the cause of diseases classified elsewhere; I25.10 Atherosclerotic heart disease of native coronary artery without angina pectoris; K31.7 Polyp of stomach and duodenum; K64.8 Other hemorrhoids; Z68.24 Body mass index [BMI] 24.0-24.9, adult; Z99.2 Dependence on renal dialysis; Z79.84 Long term (current) use of oral hypoglycemic drugs; Z95.5 Presence of coronary angioplasty implant and graft; Z79.82 Long term (current) use of aspirin
CPT/HCPCS: 43235; 45378; 82962; C1751; C9113; G0378; J0171; J1200; J1610; J1644; J2250; J2310; J2765; J2916; J3010; J3490; J7030; J7040; J7050; P9016; Q0092

== ENCOUNTER 2019-07-26 17:24 | Emergency (ER) | payer MEDICAID ==
[~2019-07-26] VITALS: Ht 149.9 cm; Wt 56.7 kg
[~2019-07-26 17:24] MED LIST changes: +FER300 PO
[2019-07-26 17:27] VITALS: Ht 149.9 cm; Wt 56.7 kg
[2019-07-26 20:10] VITALS: BP 130/60
== END 2019-07-26 20:10 | disposition home or self-care (01) ==
LOC: ED 17:24
DX: I80.9 Phlebitis and thrombophlebitis of unspecified site (principal); E11.22 Type 2 diabetes mellitus with diabetic chronic kidney disease; I12.0 Hypertensive chronic kidney disease with stage 5 chronic kidney disease or end stage renal disease; N18.6 End stage renal disease; I38 Endocarditis, valve unspecified; Z99.2 Dependence on renal dialysis
CPT/HCPCS: Q0092